=== PATIENT | male | born 2000 | race Caucasian/White ===

== ENCOUNTER 2018-01-04 09:08 | Emergency (ER) | payer BC ==
[2018-01-04] MEDS ORDERED: ONDANSETRON DISINTEGRATING 4 MG TAB PO ONE (09:20)
--- NOTE | 2018-01-04 09:21 | EDPHY ---
H & P Stated Complaint: dancing last night (etoh/cocaine) hit head on door denies loc/ Source: Patient Exam Limitations: No limitations - Personal History Current Tetanus Diphtheria and Acellular Pertussis (TDAP): Yes - Medical/Surgical History Hx Asthma: No Hx Chronic Respiratory Disease: No Hx Diabetes: No Hx Cardiac Disease: No Hx Renal Disease: No Hx Cirrhosis: No Hx Alcoholism: No Hx HIV/AIDS: No Hx Splenectomy or Spleen Trauma: Yes Other PMH: spherocytosis choly/splenectomy - Social History Smoking Status: Current some day smoker Time Seen by Provider: 01/04/18 09:20 HPI/ROS: HPI: This is a 17-year-old male who presents with Chief Complaint: dancing last night (etoh/cocaine) hit head on door denies loc/ Location: front of scalp Quality: injury Duration: last night Signs and Symptoms: No LOC, no fever, + nausea, + vomiting x 2, no photophobia , no noise sensitivity, no neck stiffness, no ear pain, no tinnitus, no nasal congestion, no sinus pressure, no weakness, no radiation, no aura Timing: Gradual onset Severity: [id number] Context: Patient is student at [employer], presents with complaints of waking up this morning feeling nauseous and vomiting after drinking water x2 times. Patient reports that he has continue nausea and mild headache in the frontal portion of his scalp where he hit his head on the doorjamb. Patient reports that he was drinking alcohol approximately, 8 beers, and used 1 line of cocaine last night. Patient reports that when he hit his head that he felt mild, constant, nonradiating pain. He denies any headache this morning. Denies LOC/neck pain/dizziness/amnesia. Modifying Factors: None Comment: ROS: A comprehensive 10 system review of systems is otherwise negative aside from elements mentioned in the history of present illness. MEDICAL/SURGICAL/SOCIAL HISTORY: Medical/surgical history: spherocytosis, cholecystectomy, splenectomy Social history: Student at [employer]. Smoker. Family history noncontributory. CONSTITUTIONAL: Well-developed, well-nourished teenage white male, nontoxic in appearance, awake and alert, no obvious distress HEENT: 2 inch x 1 inch contusion in the middle of his for head at the scalp line and normocephalic. NECK: supple, no midline tenderness, flexion 45 degrees, extension 45 degrees, right and left lateral flexion 45 degrees. No meningismus. Cardiovascular: Normal S1/S2, regular rate, regular rhythm, without murmur rub or gallop. PULMONARY/CHEST: Symmetrical and nontender. Clear to auscultation bilaterally. Good air movement. No accessory muscle usage. ABDOMEN: Soft, nondistended, nontender. EXTREMITIES: 2/2 pulses, strength 5/5, good light touch sensation. no deformities, no clubbing, no cyanosis or edema. NEUROLOGICAL: no focal neuro deficits. GCS 15. Light touch sensation intact. Normal cerebellar testing. SKIN: Warm and dry, no erythema. no rash. Good capillary refill. (Khadijah Ac) Constitutional: Initial Vital Signs Temperature (C) 36.5 C 01/04/18 09:12 Heart Rate 95 01/04/18 09:12 Respiratory Rate 16 01/04/18 09:12 Blood Pressure 110/89 H 01/04/18 09:12 O2 Sat (%) 94 01/04/18 09:12 O2 Delivery Mode Room Air Allergies/Adverse Reactions: No Known Allergies Allergy (Unverified 01/04/18 09:12) Home Medications: Medication Instructions Recorded Minoxidil 01/04/18 Ondansetron Odt [Zofran Odt 4 mg 4 mg PO Q4 PRN #12 tab 01/04/18 (*)] Medical Decision Making ED Course/Re-evaluation: Vital signs reviewed and stable upon arrival. No LOC. No neurological deficit. Vomited only 2 times. No indication for head CT imaging based on Desha protocol. 0935: Given Zofran. 1030: Drinking apple juice and eating applesauce without any difficulties. Discharge on Concussion Precautions with referral to [facility]cussion Clinic. Given a prescription for Zofran. This patient was seen under the supervision of my secondary supervising physician. I evaluated care for this patient independently. Discussed this patient with Dr. Arce. (Khadijah Ac) Differential Diagnosis: Head injury including but not limited to concussion, skull fracture, intraparenchymal contusion, subarachnoid, subdural and epidural hematoma. (Khadijah Ac) Other Provider: PHYSICIAN DOCUMENTATION: The patient was evaluated and managed by the Physician General Labor Forklift Operator. My co- signature indicates that I have reviewed this chart and I agree with the findings and plan of care as documented. I am the secondary supervising physician. (Isaiah Arce) - Data Points Medications Given: Discontinued Medications Ondansetron HCl (Zofran Odt) 4 mg PO EDNOW ONE Stop: 01/04/18 09:21 Last Admin: 01/04/18 09:28 Dose: 4 mg Ondansetron HCl (Zofran Odt) 4 mg PO EDNOW ONE Stop: 01/04/18 09:56 Last Admin: 01/04/18 09:57 Dose: 4 mg Ondansetron HCl (Zofran) 4 mg IVP EDNOW ONE Stop: 01/04/18 09:56 Last Admin: 01/04/18 09:57 Dose: Not Given Departure - Departure Disposition: Home, Routine, Self-Care Clinical Impression: Contusion of scalp, initial encounter, Alcohol use, Cocaine use Closed head injury without loss of consciousness Qualifiers: Encounter type: initial encounter Qualified Code(s): S09.90XA - Unspecified injury of head, initial encounter Condition: Good Instructions: Concussion (ED), Head Injury (ED) Additional Instructions: Rest as much as possible until you are feeling better. Consume a minimum of 8-10 glasses of water or electrolyte fluid replacement drinks that include Gatorade, Powerade, Pedialyte. Eat a bland diet for the next 48 hours and then slowly advance as tolerated. Take Zofran 1 tab every 4-6 hours as needed for nausea, vomiting. Take Tylenol 650 mg every 4 hours and/or Ibuprofen 600 mg every 8 hours with food as needed for pain or headache. You sustained a closed head injury and it is recommended that you observe concussion precautions. Follow-up with the student health clinic as needed. Refrain from drinking alcohol and using drugs until symptoms have resolved. If symptoms persist greater than 1-2 weeks, follow-up with Dr. Lan in the Concussion Clinic. Return to the ER immediately if you have progressive headaches, neurologic deficits, gait abnormality, visual disturbance, slurred speech, or any other symptom that concerns you. Referrals: Kirstie Lan MD [Medical Doctor] - As per Instructions [facility] ,. [Clinic] - As per Instructions Prescriptions: Ondansetron Odt [Zofran Odt 4 mg (*)] 4 mg PO Q4 PRN #12 tab PRN Reason: Nausea/Vomiting, Use 1st
--- NOTE | 2018-01-04 09:50 | ASMTCAGE ---
CAGE Additional Comments Attempted to meet with pt to complete CAGE, pt left prior to being seen by CM. Date Signed: 01/04/2018 09:50 AM Electronically Signed By:Cristine Potter RN
[2018-01-04] MEDS ORDERED: ONDANSETRON 4 MG/2 ML VIAL IVP ONE (09:55)
[2018-01-04] MEDS: ONDANSETRON DISINTEGRATING 4 MG TAB PO ONE ×2 (09:56→09:57)
[2018-01-04 10:41] VITALS: BP 108/71
--- NOTE | 2018-01-04 10:45 | ASMTCMCOM ---
CM Note CM Note Notes: Pt presented to the Emergency Department after hitting his head while dancing last night. Pt reports ETOH and cocaine use. This is the pt's first visit to this ED. History includes spherocytosis, yumi, splenectomy, smoking. Pt is a student at the [employer]. Tech previously reported pt was discharged. Per RN, pt discharge delayed for PO challenge secondary to nausea. Met with pt to discuss alcohol/cocaine use. Pt reports drinking approximately 8 drinks 1-2 times per week. Pt reports using cocaine approximately once per month. 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 Resources offered, pt denied. Pt to follow up as directed; referral provided to concussion clinic by . CM available for any further issues or concerns. Date Signed: 01/04/2018 10:21 AM Electronically Signed By:Cristine Potter RN
== END 2018-01-04 10:45 | disposition home or self-care (01) ==
DX: S00.03XA Contusion of scalp, initial encounter (principal); R11.2 Nausea with vomiting, unspecified; Z72.89 Other problems related to lifestyle; F14.90 Cocaine use, unspecified, uncomplicated; W22.09XA Striking against other stationary object, initial encounter; Y99.8 Other external cause status; Y93.41 Activity, dancing